=== PATIENT | male | born 1975 | race Caucasian/White ===

== ENCOUNTER 2016-10-21 21:53 | Emergency (ER) | payer SELFPAY ==
[~2016-10-21] VITALS: Ht 190.5 cm; Wt 114.7 kg
[2016-10-21 21:54] VITALS: Ht 190.5 cm; Wt 114.7 kg
--- OUTSIDE RECORDS SUMMARY | 2016-10-21 21:56 | XMS REPORT | Continuity of Care Document ---
Author Author [facility] Organization [facility] Address Unknown Phone Unavailable Support Name Relationship Address Phone YULIA MCKEON MD Caregiver [address] [place] [address] [place] [address] Unavailable FERNANDA SOSA Next Of Kin [address] [place] [address] Insurance Providers Guarantor Cali Dorado Address [address] [place] [address] Email DENIED 07-21-16 Payer Self Pay Subscriber's Name Cali Dorado Relationship 18 Self Chief Complaint and Reason for Visit Chief Complaint Male Urogenital Problems Reason for Visit [id number] Problems Past Problems Medical Problem Onset Date Kidney stones Unknown Medications Current Home Medications Medication Dose Units Route Directions Days Qty Instructions Start Date None 09/05/08 Social History Social History Problem Response Recorded Date/Time Onset Date Status Hx Substance Use No 07/21/2016 3:46pm Not Applicable Not Applicable Hx Alcohol Use Y OCC BEER 07/21/2016 3:46pm Not Applicable Not Applicable Query Response Start Date Stop Date Smoking Status Former smoker Hospital Discharge Instructions No hospital discharge instructions. Plan of Care Discharge Date 07/21/16 5:36pm Disposition 01 DISCHARGED HOME, SELF-CARE Condition at Discharge Stable Instructions/Education Provided Kidney Stones (ED) Prescriptions See Medication Section Additional Instructions/Education 1. You have kidney stones, but it doesn't appear that any of them are currently moving down the ureters. 2. You can try ice and or heat for the flank pain you are experiencing. 3. It is very important that you establish care with a primary care provider and have regular follow-up. Furthermore, it is strongly suggested you take the medication which has been recommended/prescribed for your coronary artery disease. Care Plan and Goals Physician Care Plan Problem: Kidney stones Goal: Follow up with primary care provider Instructions: Take medications and follow care plan as discussed/written Functional Status No functional status results. Allergies, Adverse Reactions, Alerts Allergen Type Severity Reaction Status Last Updated No Known Drug Allergies Allergy Unknown Active 03/18/08 Immunizations Query Response on File Recorded Date/Time Hx Influenza Vaccination No 09/05/08 6:04pm Hx Pneumococcal Vaccination No 09/05/08 6:04pm Hx Influenza Vaccination No 09/05/08 6:04pm Vital Signs Acute Vital Signs Vital Response Date/Time Temperature (Fahrenheit) 97.6 deg F (96.8 - 99.1) 07/21/2016 5:36pm Temperature (Calculated Celsius) 36.54167 degrees C (36.0 - 37.3) 07/21/2016 5:36pm Pulse Rate (adult) 68 bpm (60 - 100) 07/21/2016 5:36pm Respiratory Rate 16 breaths/min (10 - 20) 07/21/2016 5:36pm O2 Sat by Pulse Oximetry 98 % (90 - 100) 07/21/2016 5:36pm Blood Pressure 135/80 mm Hg 07/21/2016 5:36pm Height (Feet) 6 feet 07/21/2016 3:35pm Height (Inches) 3.00 inches 07/21/2016 3:35pm Weight (Kilograms) 115.000 kg 07/21/2016 3:35pm Body Mass Index (BMI) 31.0 07/21/2016 3:35pm Results Laboratory Results Test Name Result Units Flags Reference Collection Date/Time Result Date/ Time Comments Urine Color YELLOW YELLOW 07/21/2016 3:52pm 07/21/2016 4:05pm Urine Turbidity CLEAR CLEAR 07/21/2016 3:52pm 07/21/2016 4:05pm Urine Specific [place] 1.025 1.015-1.025 07/21/2016 3:52pm 2016 4:05pm Urine pH 6.0 5.0-8.0 07/21/2016 3:52pm 07/21/2016 4:05pm Urine Leukocyte Esterase NEGATIVE NEGATIVE 07/21/2016 3:52pm 2016 4:05pm Urine Nitrite NEGATIVE NEGATIVE 07/21/2016 3:52pm 07/21/2016 4:05pm Urine Protein NEGATIVE NEGATIVE 07/21/2016 3:52pm 07/21/2016 4:05pm Urine Glucose (UA) NEGATIVE NEGATIVE 07/21/2016 3:52pm 07/21/2016 4: 05pm Urine Ketones NEGATIVE NEGATIVE 07/21/2016 3:52pm 07/21/2016 4:05pm Urine Urobilinogen 0.2 EU/DL NORMAL 07/21/2016 3:52pm 07/21/2016 4: 05pm Urine Bilirubin NEGATIVE NEGATIVE 07/21/2016 3:52pm 07/21/2016 4: 05pm Urine Blood TRACE-INTACT A NEGATIVE 07/21/2016 3:52pm 07/21/2016 4: 05pm Urinalysis Comment MICROSCOPIC NOT IND. 07/21/2016 3:52pm 2016 4:05pm Name: CALI DORADO Unit #: [id number] : 1975 Sex: M Admit Date: Loc / Svc: ED Discharge Date: DIAGNOSTIC IMAGING REPORT Report #: [id number] [facility] [place] Indication: ITS.REASON: right flank pain, hematuria PROCEDURE: CT RENAL W/O CONTRAST: Encounter: Initial Comparison: None Technique: Axial CT images were performed through the abdomen and pelvis without intravenous contrast. Coronal and sagittal two-dimensional reformats. Automated Exposure Control and Iterative Reconstruction dose reducing techniques were utilized. Findings: The lung bases are clear. The unenhanced contours of the liver, gallbladder, spleen, pancreas and adrenal glands are within normal limits. Left kidney shows a 3 mm nonobstructing upper pole stone and a 2 mm lower pole stone. No left ureteral stone. Right kidney shows a 2 mm upper pole stone and a 1 mm lower pole stone. No hydronephrosis. No right-sided ureteral stone. Bladder appears normal. No free fluid or evidence of a bowel obstruction. Postoperative changes from prior appendectomy. Bone windows are normal for age. Right testicle appears to be partially retracted into the inguinal canal. Impression: Nonobstructing bilateral nephrolithiasis. No ureteral stone or clear etiology for the patient's right flank pain. . Procedures No known history of procedures. Encounters Encounter Location Arrival/Admit Date Discharge/Depart Date Attending Provider Departed Emergency Room [facility] 07/21/16 3:32pm 07/21/16 5: 36pm YULIA MCKEON MD Recent Diagnosis
--- OUTSIDE RECORDS SUMMARY | 2016-10-21 21:56 | XMS REPORT ---
Author Author [facility], [facility] - Organization Unknown Address Unknown Phone Unavailable Allergies, Adverse Reactions, Alerts * No Latex Allergy. * No IV Contrast Allergy. * No Known Drug Allergies. * No Known Food Allergies. * No Known Allergies. Problems * Cardiovascular CV Stress Test: Abnormal* Status:Active. * Chest Pain* Status:Active. * Skin Integrity Impairment* Status:Active. Procedures No Procedures Documented. Medication It is the responsibility of the patient or patient manufacturer's service representative to confirm the list of medications with either the patient's personal care provider or the patient's follow-up care provider to ensure the patient has an appropriate list of medications to take at home. Discharge medications* famotidine (Pepcid AC) 40 mg Tablet, Ordered By: NAA VIGIL Directions: 1 tablet oral daily Additional Instructions: for 6 weeks * isosorbide mononitrate (Imdur) 30 mg Tablet Extended Release 24 hr, Ordered By : NAA VIGIL Directions: 1 tablet oral daily Additional Instructions: for 2 months Stopped medications* metoprolol tartrate 25 mg Tablet Directions: 0.5 tablet oral twice a day * aspirin 81 mg Tablet, Delayed Release (E.C.) Directions: 1 tablet oral daily Results LAB--CHEMISTRY from 10/22/2012 1:00 PMAnion Gap 5 (3-20 ) Albumin 4.1 g/dL (3.5-4.8 g/dL) Alkaline Phosphatase 44 U/L (26-104 U/L) ALT (SGPT) 27 U/L (17-63 U/L) AST (SGOT) 19 U/L (15-41 U/L) Bilirubin Total 1.2 mg/dL (0.2-1.2 mg/dL) BUN 19 mg/dL (4-20 mg/dL) Calcium 9.3 mg/dL (8.6-10.0 mg/dL) Chloride 109 mEq/L (99-109 mEq/L) CO2 25 mEq/L (22-32 mEq/L) Creatinine 0.86 mg/dL (0.64-1.27 mg/dL) eGFR >60 (>60- ) Globulin 2.6 g/dL (1.9-4.3 g/dL) Glucose 105 mg/dL H (70-100 mg/dL) Potassium 4.1 mEq/L (3.6-5.1 mEq/L) Sodium 139 mEq/L (136-144 mEq/L) Protein 6.7 g/dL (6.1-7.9 g/dL) Cholesterol 176 mg/dL (0-200 mg/dL) Cardiac Risk 3.7 (0.0-5.7 ) HDL Cholesterol 48 mg/dL (>40- mg/dL) LDL Cholesterol 115 mg/dL H (0-100 mg/dL) Triglycerides 67 mg/dL (0-150 mg/dL) VLDL Cholesterol 13 mg/dL (0-30 mg/dL) LAB--HEMATOLOGY from 10/22/2012 1:00 PMHCT 43.1 % (42.0-52.0 %) HGB 15.8 g/dl (14.0-18.0 g/dl) MCH 31.5 pg (27.0-32.0 pg) MCHC 36.7 g/dL H (32.0-36.0 g/dL) MCV 85.9 fL (82.0-99.0 fL) MPV 10.9 fL (9.4-12.3 fL) Platelet Count 213 K/uL (150-400 K/uL) RBC 5.02 M/uL (4.60-6.20 M/uL) RDW 12.8 % (11.5-14.5 %) WBC 6.0 K/uL (4.8-10.8 K/uL)
--- OUTSIDE RECORDS SUMMARY | 2016-10-21 21:56 | XMS REPORT | Continuity of Care Document ---
Author Author [facility] Organization [facility] Address Unknown Phone Unavailable Care Team Providers Care Production Control Technologist Name Role Phone CATIE GALVAN MD Unavailable [phone] Insurance Providers Payer Name Policy Number Subscriber Name Relationship Self Pay Insurance Cali Dorado 01 Self / Same As Patient Chief Complaint and Reason for Visit Chief Complaint Skin Problem Reason for Visit Cellulitis and abscess of leg Problems Medical Problems Problem Onset Date Status Chest pain 09/24/2012 Active Atypical chest pain 10/01/2012 Active Moderate major depression, single episode 05/18/2013 Active Knee pain Unknown Active Foot pain Unknown Active Sinusitis Unknown Active Bursitis of elbow Unknown Active Bursitis of elbow Unknown Active Laceration of forearm, left Unknown Active Laceration of forearm, left Unknown Active Visit for suture removal Unknown Active Laceration of forearm, left Unknown Active Cellulitis and abscess of leg Unknown Active Medications Medication Dose Route Sig Days/Qty Instructions Order Date Discontinued Date Status [None] 09/24/12 Active Hydrocodone-Acetaminophen 1 Tab PO Every 6 hours as needed 20 Qty for pain 09/06/13 09/13/13 Discontinued Hydrocodone-Acetaminophen 1 Tab PO Every 6 hours as needed 20 Qty 09/1310/04/13 Discontinued Hydrocodone-Acetaminophen 1 Tab PO Every 6 hours as needed 20 Qty for pain 10/04/13 10/13/13 Discontinued Hydrocodone-Acetaminophen 1 Tab PO Every 6 hours as needed 20 Qty 10/1310/25/13 Discontinued Hydrocodone-Acetaminophen 1 Tab PO Every 6 hours as needed 20 Qty for pain 10/25/13 11/08/13 Discontinued Hydrocodone-Acetaminophen 1 Tab PO Every 6 hours as needed 20 Qty 11/0812/12/13 Discontinued Hydrocodone-Acetaminophen 1 Tab PO Every 6 hours as needed 20 Qty for pain 11/18/13 11/28/13 Discontinued Hydrocodone-Acetaminophen 1 Tab PO Every 6 hours as needed 20 Qty 11/2812/05/13 Discontinued Hydrocodone-Acetaminophen 1 Tab PO Every 6 hours as needed 20 Qty for pain 12/05/13 02/14/14 Discontinued Hydrocodone-Acetaminophen 1 Tab PO Every 6 hours as needed 20 Qty 12/1212/21/13 Discontinued Hydrocodone-Acetaminophen 1 Tab PO Every 6 hours as needed 30 Qty for pain 12/21/13 01/02/14 Discontinued Hydrocodone-Acetaminophen 1 Tab PO Every 6 hours as needed 30 Qty 01/0201/13/14 Discontinued Hydrocodone-Acetaminophen 1 Tab PO Every 6 hours as needed 30 Qty for pain 01/13/14 01/26/14 Discontinued Hydrocodone-Acetaminophen 1 Tab PO Every 6 hours as needed 30 Qty 01/2602/07/14 Discontinued Hydrocodone-Acetaminophen 1 Tab PO Every 6 hours as needed 30 Qty for pain 02/07/14 Active Hydrocodone-Acetaminophen 1 Tab PO Every 6 hours as needed 30 Qty 02/14 Active Sulfamethoxazole-Trimethoprim 1 Tab PO TWICE A DAY 10 Days 04/02/14 Active Cephalexin 500 Mg PO FOUR TIMES DAILY 10 Days 04/02/14 Active Hydrocodone-Acetaminophen 1 Tab PO q4h PRN 12 Qty 04/02/14 Active Social History Social History Problem Response Recorded Date/Time Hx Alcohol Use No 09/24/2012 5:38pm Hx Substance Use No 09/24/2012 5:38pm Smoking Status Former smoker 04/02/2014 10:48am Query Response Start Date Stop Date Smoking Status Former smoker Hospital Discharge Instructions No hospital discharge instructions. Plan of Care Discharge Date 04/02/14 11:21am Disposition 01 HOME, SELF-CARE Condition at Discharge Stable Prescriptions See Medications Section Referrals CATIE GALVAN MD Functional Status No functional status results. Allergies, Adverse Reactions, Alerts Allergen Type Severity Reaction Status Last Updated No Known Allergies Active 11/05/12 Immunizations Name Given Type Td (adult), adsorbed 03/17/14 Administered Vital Signs Acute Vital Signs Vital Response Date/Time Blood Pressure 134/76 mm Hg Blood Pressure Mean 95 mm Hg Temperature (Fahrenheit) 97.5 degrees F (96.0 - 99.9) Temperature (Calculated Celsius) 36.80927 degrees C Temperature Source Oral Pulse Pulse Rate: ED 92 bpm Respiratory Rate 17 breaths per minute (10 - 20) Height (Feet) 6 ft Height (Inches) 3 in. Weight (Pounds) 220 lbs Ambulatory Vital Signs Vital Response Date/Time Height 6 ft 01/09/2014 9:41am Weight 226 lbs 01/09/2014 9:41am Blood Pressure 116/80 mm Hg 01/09/2014 9:41am Body Surface Area 2.31 m2 01/09/2014 9:41am Body Mass Index 30.7 kg/m2 01/09/2014 9:41am Results Test Source Date Result Interp. Ref. Range Comments Alanine Aminotransferase (ALT/SGPT) September 24, 2012 2:13pm 29 U/L N 5-40 COMMENT: 03 Albumin September 24, 2012 2:13pm 4.5 gm/dL N 3.2-5.0 COMMENT: 03 Albumin/Globulin Ratio September 24, 2012 2:13pm 1.6 N 1.4-2.4 COMMENT: 03 Alkaline Phosphatase September 24, 2012 2:13pm 48 U/L N 35-125 COMMENT: 03 Amylase Level February 04, 2001 1:45pm 25 U/L N 16-108 Anion Gap September 24, 2012 2:13pm 10.8 N 6-13 COMMENT: 03 Aspartate Amino Transf (AST/SGOT) September 24, 2012 2:13pm 27 U/L N 5-40 COMMENT: 03 BUN/Creatinine Ratio September 24, 2012 2:13pm 19.1 COMMENT: 03 Band Neutrophils February 05, 2001 6:20am 2.0 % N 0-7 Basophils # (Auto) September 24, 2012 2:13pm 0.1 K/uL N 0-0.2 COMMENT: 03 Basophils (%) (Auto) September 24, 2012 2:13pm 0.5 % N 0-1 COMMENT: 03 Blood Urea Nitrogen September 24, 2012 2:13pm 18 mg/dL N 8-25 COMMENT: 03 Calcium Level September 24, 2012 2:13pm 9.4 mg/dL N 8.2-10.6 COMMENT: 03 Carbon Dioxide Level September 24, 2012 2:13pm 24 mEq/L N 22-34 COMMENT: 03 Chloride Level September 24, 2012 2:13pm 104 mEq/L N 98-116 COMMENT: 03 Cholesterol Level November 30, 2013 1:34pm 201 mg/dL H 120-200 Cholesterol Ratio (LDL/HDL) November 30, 2013 1:34pm 3.406 Creatine Kinase MB September 24, 2012 2:13pm 4.3 ng/mL N 0.0-6.0 COMMENT: 03 Creatinine September 24, 2012 2:13pm 0.94 mg/dL N 0.9-1.6 COMMENT: 03 Eosinophils # (Auto) September 24, 2012 2:13pm 0.1 K/uL N 0-0.8 COMMENT: 03 Eosinophils (%) (Auto) September 24, 2012 2:13pm 0.8 % N 0-7.0 COMMENT: 03 Eosinophils (Manual) February 04, 2001 1:45pm 1.0 % N 0-7.0 Globulin September 24, 2012 2:13pm 2.8 gm/dL N 2.0-3.0 COMMENT: 03 Glycated Hemoglobin November 30, 2013 1:34pm 5.3 % N 4.0-6.0 HDL Cholesterol November 30, 2013 1:34pm 59 mg/dL N 40-80 Hematocrit September 24, 2012 2:13pm 48.8 % N 40.0-54.0 COMMENT: 03 Hemoglobin September 24, 2012 2:13pm 17.2 g/dL N 14.0-18.0 COMMENT: 03 Immature Blood Cells September 24, 2012 2:13pm 0.1 K/uL N 0-0.4 COMMENT: 03 LDL Cholesterol November 30, 2013 1:34pm 117 mg/dL H 25-100 Lymphocytes # (Auto) September 24, 2012 2:13pm 1.4 K/uL N 0.9-5.2 COMMENT: 03 Lymphocytes (%) (Auto) September 24, 2012 2:13pm 16.4 % N 16.0-44.0 COMMENT : 03 Lymphocytes (Manual) February 05, 2001 6:20am 13.0 % PL 21.0-51.0 Mean Corpuscular Hemoglobin September 24, 2012 2:13pm 30.9 pg N 26.0-33.0 COMMENT: 03 Mean Corpuscular Hemoglobin Concent September 24, 2012 2:13pm 35.2 g/dL N 31.0-36.0 COMMENT: 03 Mean Corpuscular Volume September 24, 2012 2:13pm 87.7 fL N 80.0-94.0 COMMENT: 03 Mean Platelet Volume September 24, 2012 2:13pm 7.0 fL N 7.0-11.0 COMMENT: 03 Monocytes # (Auto) September 24, 2012 2:13pm 0.4 K/uL N 0.16-1.0 COMMENT: 03 Monocytes (%) (Auto) September 24, 2012 2:13pm 4.1 % N 2.0-9.0 COMMENT: 03 Monocytes (Manual) February 05, 2001 6:20am 5.0 % N 2.0-9.0 Neutrophils February 05, 2001 6:20am 80.0 % PH 42.0-75.0 Neutrophils # (Auto) September 24, 2012 2:13pm 6.5 K/uL N 1.9-8.0 COMMENT: 03 Neutrophils (%) (Auto) September 24, 2012 2:13pm 77.2 % H 42.0-75.0 COMMENT : 03 Platelet Count September 24, 2012 2:13pm 261 K/uL N 130-400 COMMENT: 03 Platelet Estimate February 05, 2001 6:20am Normal NORMAL Potassium Level September 24, 2012 2:13pm 3.8 mEq/L N 3.5-5.1 COMMENT: 03 Prothromb Time International Ratio September 24, 2012 2:13pm 0.98 L 2.0-3.0 COMMENT: 03 Prothrombin Time September 24, 2012 2:13pm 10.0 SECONDS N 9.0-12.0 COMMENT : 03 Random Glucose September 24, 2012 2:13pm 107 mg/dL N 65-115 COMMENT: 03 Red Blood Cell Morphology February 04, 2001 1:45pm Normal Red Blood Count September 24, 2012 2:13pm 5.57 M/uL H 4.60-5.40 COMMENT: 03 Red Cell Distribution Width September 24, 2012 2:13pm 12.4 % N 11.5-14.5 COMMENT: 03 Sodium Level September 24, 2012 2:13pm 135 mEq/L N 133-145 COMMENT: 03 Thyroid Stimulating Hormone (TSH) November 30, 2013 1:34pm 0.78 uIU/ml N 0.34-5.60 Total Bilirubin September 24, 2012 2:13pm 0.8 mg/dL N 0.1-1.3 COMMENT: 03 Total Creatine Kinase September 24, 2012 2:13pm 113 U/L N 10-180 COMMENT: 03 Total Protein September 24, 2012 2:13pm 7.3 gm/dL N 6.0-8.4 COMMENT: 03 Triglycerides Level November 30, 2013 1:34pm 127 mg/dL N 45-150 Urine Appearance February 04, 2001 10:00pm Clear Urine Bacteria February 04, 2001 10:00pm None NEGATIVE Urine Bilirubin February 04, 2001 10:00pm Negative NEGATIVE Urine Color February 04, 2001 10:00pm Yellow Urine Epithelial Cells February 04, 2001 10:00pm Few /LPF Urine Glucose (UA) February 04, 2001 10:00pm Negative NEGATIVE Urine Ketones February 04, 2001 10:00pm Negative NEGATIVE Urine Leukocyte Esterase February 04, 2001 10:00pm Negative NEGATIVE Urine Mucus September 24, 1999 10:50am 1+ NEGATIVE Urine Nitrate February 04, 2001 10:00pm Negative NEGATIVE Urine Occult Blood February 04, 2001 10:00pm Negative NEGATIVE Urine Protein February 04, 2001 10:00pm Trace NEGATIVE Urine RBC February 04, 2001 10:00pm 0-1 /hpf NONE Urine Specific [place] February 04, 2001 10:00pm 1.010 Urine Urobilinogen February 04, 2001 10:00pm 1.0 E.U./dL 0.2-1.0 Urine WBC February 04, 2001 10:00pm 0-2 /hpf NONE Urine WBC Clumps February 04, 2001 10:00pm None NONE Urine pH February 04, 2001 10:00pm 7.0 VLDL Cholesterol November 30, 2013 1:34pm 25.4 N 5-40 White Blood Count September 24, 2012 2:13pm 8.4 K/uL N 5.0-10.0 COMMENT: 03 D-Dimer Quantitative (PE/DVT) September 24, 2012 2:13pm < 150 ng/mL <230 Results <230 ng/mL uday burroughs negativepredictability for DVT or PE Bedside Troponin I September 25, 2012 6:54am < 0.05 ng/mL 0.00-0.05 <0.05 ng/mL=NORMAL0.05 - 0.40 ng/mL=CARDIAC CONDITION >0.40 ng/mL=SUGGESTS AMI Glomerular Filtration Rate Calc September 24, 2012 2:13pm > 60.00 mL/min MULTIPLY RESULT BY 1.210 IF THE PATIENT IS -AMERICANUnits are mL/min/ 1.73 m2 > 60 Normal kidney function 30-59 Moderately decreased kidney function 15-29 Severely decreased kidney function <15 End-stage kidney failure Influenza Virus A & B Rapid Smear Nasopharyngeal June 21, 2007 1:50pm Herpes Simplex Virus Culture Finger-Right Pinky April 21, 2007 4:15pm SEE SEPARATE REPORT Procedures No known history of procedures. Encounters Encounter Location Date/Time Departed [facility] 04/02/14 10:45am Departed Emergency Room [facility] 03/22/14 10:10am Departed Emergency Room [facility] 03/17/14 4:47pm Departed Emergency Room [facility] 02/12/14 8:46pm Office Visit CATIE GALVAN 01/09/14 9:35am Office Visit CATIE GALVAN 12/21/13 4:00pm Office Visit CATIE GALVAN 11/28/13 4:30pm Office Visit [facility] 09/13/13 2:00pm Departed Emergency Room [facility] 09/06/13 7:09pm Office Visit CATIE GALVAN 05/18/13 10:30am Recent Diagnosis
--- OUTSIDE RECORDS SUMMARY | 2016-10-21 21:57 | XMS REPORT | Referral Summary ---
Author Author [facility] Organization [facility] Address Unknown Phone Unavailable Care Team Providers Care Delivery Crew Member Name Role Phone Cornell Delgado Primary Care Physician Unavailable Encounter KELLY [id number] Date(s): 05/29/16 - 05/29/16 [facility] [address] [place] [address] [phone] Discharge Disposition: 01-Home or Self Care Attending Physician: Presley Cortés MD Admitting Physician: Presley Cortés MD Vital Signs Most recent to 1 oldest [Reference Range]: Temperature Tympanic 36.2 degC [36.6-38.1 degC] *LOW* (05/29/16 11:22 AM) Heart Rate Monitored 78 bpm [60-100 bpm] (05/29/16 5:15 PM) Respiratory Rate 16 br/min [14-20 br/min] (05/29/16 5:15 PM) Blood Pressure 115/79 mmHg [90-140/60-90 mmHg] (05/29/16 5:15 PM) Mean Arterial 96 mmHg Pressure, Cuff (05/29/16 5:15 PM) SpO2 99 % (05/29/16 5:15 PM) Remote Telemetry Ongoing (05/29/16 2:00 PM) Problem List No data available for this section Allergies, Adverse Reactions, Alerts No Known Allergies Medications aspirin 81 mg oral tablet 81 mg 1 tabs, Oral, Daily, # 30 tabs, 0 Refill(s) Start Date: 05/28/16 Status: Ordered nitroglycerin 0.4 mg sublingual tablet 0.4 mg 1 tabs, SubLingual, q5min, as needed for chest pain, # 100 tabs, 0 Refill (s) Start Date: 05/28/16 Status: Ordered Results Hematology Most recent to 1 oldest [Reference Range]: WBC [4.8-10.8 5.4 10*3/uL 10*3/uL] (05/29/16 11:45 AM) RBC [4.60-6.20] 5.15 (05/29/1645 AM) Hgb [14.0-18.0 15.3 gm/dL gm/dL] (05/29/16 11:45 AM) Hct [42.0-52.0 %] 44.1 % (05/29/1645 AM) MCV [82.0-99.0 fL] 85.6 fL (05/29/1645 AM) MCH [27.0-32.0 pg] 29.7 pg (05/29/16:45 AM) MCHC [32.0-36.0 34.7 gm/dL gm/dL] (05/29/16:45 AM) RDW [11.5-14.5 %] 12.2 % (05/29/16:45 AM) Platelet [150-400 225 10*3/uL 10*3/uL] (05/29/16 11:45 AM) MPV [9.4-12.3 fL] 11.0 fL (05/29/16 11:45 AM) Chemistry Most recent to 1 oldest [Reference Range]: Sodium Lvl [136-144 140 mEq/L mEq/L] (05/29/16:45 AM) Potassium Lvl 4.2 mEq/L [3.6-5.1 mEq/L] (05/29/1645 AM) Chloride [99-109 107 mEq/L mEq/L] (05/29/1645 AM) CO2 [22-32 mEq/L] 26 mEq/L (05/29/16:45 AM) AGAP [3-20] 7 (05/29/1645 AM) BUN [4-20 mg/dL] 18 mg/dL (05/29/1645 AM) Glucose Lvl [70-100 95 mg/dL mg/dL] (05/29/16:45 AM) Creatinine Lvl 0.89 mg/dL [0.64-1.27 mg/dL] (05/29/1645 AM) eGFR [>60] >60 1 (12/22/16 11:45 AM) Calcium Lvl 9.4 mg/dL [8.6-10.0 mg/dL] (05/29/16 11:45 AM) 1Result Comment: Multiply eGFR results by 1.21 for race. Immunizations No data available for this section Procedures Procedure Date Related Diagnosis Body Site Catheterization Left Heart with Coronary 05/29/16 Angiography1 1auto-populated from documented surgical case Social History Social History Type Response Smoking Status Former smoker; Type: Cigarettes Assessment and Plan No data available for this section
--- OUTSIDE RECORDS SUMMARY | 2016-10-21 21:57 | XMS REPORT | Continuity of Care Document ---
Author Author [facility] Organization [facility] Address Unknown Phone Unavailable Care Team Providers Care Science Writer Name Role Phone CATIE GALVAN MD Unavailable [phone] Insurance Providers Payer Name Policy Number Subscriber Name Relationship Self Pay Insurance Cali Dorado 01 Self / Same As Patient Chief Complaint and Reason for Visit Chief Complaint Knee Pain Reason for Visit Cellulitis and abscess of [...] Cellulitis and abscess of leg Unknown Active Cellulitis and abscess of leg Unknown Active Cellulitis and abscess of leg Unknown Active Medications Medication Dose Route Sig Days/Qty Instructions Order Date Discontinued Date Status Hydrocodone-Acetaminophen 1 Tab PO Every 6 hours [...] hours as needed 30 Qty 01/2602/07/14 Discontinued Sulfamethoxazole-Trimethoprim 1 Tab PO TWICE A DAY 10 Days 04/02/14 Active Cephalexin 500 Mg PO FOUR TIMES DAILY 10 Days 04/02/14 Active Hydrocodone-Acetaminophen 1 Tab PO q4h PRN 12 Qty 04/02/14 Active Social History Social History Problem Response Recorded Date/Time Hx Alcohol Use No 09/24/2012 5:38pm Hx Substance Use No 09/24/2012 5:38pm Smoking Status Former smoker 04/02/2014 10:23pm Query Response Start Date Stop Date Smoking Status Former smoker Hospital Discharge Instructions No hospital discharge instructions. Plan of Care Discharge Date 04/02/14 11:20pm Disposition 01 HOME, SELF-CARE Condition at Discharge Stable Prescriptions See Medications Section Referrals CATIE GALVAN MD Functional Status No functional status results. Allergies, Adverse Reactions, Alerts Allergen Type Severity Reaction Status Last Updated No Known Allergies Active 11/05/12 Immunizations Name Given Type Td (adult), adsorbed 03/17/14 Administered Vital Signs Acute Vital Signs Vital Response Date/Time Blood Pressure 147/76 mm Hg Blood Pressure Mean 99 mm Hg Temperature (Fahrenheit) 98.2 degrees F (96.0 - 99.9) Temperature (Calculated Celsius) 36.19567 degrees C Temperature Source Oral Pulse Pulse Rate: ED 91 bpm Respiratory Rate 17 breaths per minute [...] 2001 10:00pm 0-1 /hpf NONE Urine Specific [place] February 04, 2001 10:00pm 1.010 Urine Urobilinogen [...] Encounters Encounter Location Date/[facility] 10:11[facility]/02/14 10:45am [facility] 03/22/14 10:10am [facility] 03/17/14 4:47pm [facility] 02/12/14 8:46pm Office Visit CATIE GALVAN 01/09/14 9:35am Office Visit CATIE GALVAN 12/21/13 4:00pm Office Visit CATIE GALVAN 11/28/13 4:30pm Office Visit [facility] 09/13/13 2:00pm [facility] 7:09pm Office Visit CATIE GALVAN 05/18/13 10:30am Recent Diagnosis
--- OUTSIDE RECORDS SUMMARY | 2016-10-21 21:57 | XMS REPORT | Continuity of Care Document ---
Author Author [facility] Organization [facility] Address Unknown Phone Unavailable Care Team Providers Care Party Plan Selling Distributor Name Role Phone CATIE GALVAN MD Unavailable [phone] Insurance Providers Payer Name Policy Number Subscriber Name Relationship Self Pay Insurance Cali Dorado 01 Self / Same As Patient Chief Complaint and Reason for Visit Chief Complaint Knee Pain Reason for Visit [id number] Knee pain Problems Medical Problems Problem Onset Date Status [...] Cellulitis and abscess of leg Unknown Active Folliculitis Unknown Active Knee sprain Unknown Active Knee pain Unknown Active Medications Medication Dose Route Sig Days/Qty Instructions Order Date Discontinued Date Status Hydrocodone-Acetaminophen 1 Tab PO Every 6 hours as needed For Pain 20 Qty for pain 09/06/13 09/13/13 Discontinued Hydrocodone-Acetaminophen 1 Tab PO Every 6 hours as needed For Pain 20 Qty 09/13/13 10/04/13 Discontinued Hydrocodone-Acetaminophen 1 Tab PO Every 6 hours as needed For Pain 20 Qty for pain 10/04/13 10/13/13 Discontinued Hydrocodone-Acetaminophen 1 Tab PO Every 6 hours as needed For Pain 20 Qty 10/13/13 10/25/13 Discontinued Hydrocodone-Acetaminophen 1 Tab PO Every 6 hours as needed For Pain 20 Qty for pain 10/25/13 11/08/13 Discontinued Hydrocodone-Acetaminophen 1 Tab PO Every 6 hours as needed For Pain 20 Qty 11/08/13 12/12/13 Discontinued Hydrocodone-Acetaminophen 1 Tab PO Every 6 hours as needed 20 Qty for pain 11/18/13 11/28/13 Discontinued Hydrocodone-Acetaminophen 1 Tab PO Every 6 hours as needed 20 Qty 11/2812/05/13 Discontinued Hydrocodone-Acetaminophen 1 Tab PO Every 6 hours as needed 20 Qty for pain 12/05/13 02/14/14 Discontinued Hydrocodone-Acetaminophen 1 Tab PO Every 6 hours as needed For Pain 20 Qty 12/12/13 12/21/13 Discontinued Hydrocodone-Acetaminophen 1 Tab PO Every 6 hours as needed For Pain 30 Qty for pain 12/21/13 01/02/14 Discontinued Hydrocodone-Acetaminophen 1 Tab PO Every 6 hours as needed For Pain 30 Qty 01/02/14 01/13/14 Discontinued Hydrocodone-Acetaminophen 1 Tab PO Every 6 hours as needed For Pain 30 Qty for pain 01/13/14 01/26/14 Discontinued Hydrocodone-Acetaminophen 1 Tab PO Every 6 hours as needed For Pain 30 Qty 01/26/14 02/07/14 Discontinued Ibuprofen 600 Mg PO Every 6 hours as needed For Pain 16 Qty 05/24/14 Active Tramadol Hcl 50 Mg PO Every 6 hours as needed For Pain 12 Qty 05/24/14 Active Social History Social History Problem Response Recorded Date/Time Hx Alcohol Use No 09/24/2012 5:38pm Hx Substance Use No 09/24/2012 5:38pm Smoking Status Former smoker 05/24/2014 11:50am Query Response Start Date Stop Date Smoking Status Former smoker Hospital Discharge Instructions No hospital discharge instructions. Plan of Care Discharge Date 05/24/14 1:07pm Disposition 01 HOME, SELF-CARE Condition at Discharge Stable Prescriptions See Medications Section Referrals MASSIEL FELDMAN M.D. DO, SEJAL Thorpe M.D. Additional Instructions/Education use your knee immobilizer and crutches followup with PCP or orthopedics as you may need MRI or therapy on your knee if pain continues Functional Status No functional status results. Allergies, Adverse Reactions, Alerts Allergen Type Severity Reaction Status Last Updated No Known Allergies Active 05/24/14 Immunizations Name Given Type Td (adult), adsorbed 03/17/14 Administered Vital Signs Acute Vital Signs Vital Response Date/Time Blood Pressure 144/80 mm Hg Blood Pressure Mean 101 mm Hg Temperature (Fahrenheit) 98.5 degrees F (96.0 - 99.9) Temperature (Calculated Celsius) 36.31195 degrees C Temperature Source Oral Pulse Pulse Rate: ED 71 bpm Respiratory Rate 16 breaths per minute (10 - 20) Height [...] 2001 10:00pm 0-1 /hpf NONE Urine Specific [place] February 04, 2001 10:00pm 1.010 Urine Urobilinogen [...] Encounters Encounter Location Date/Time Departed Emergency Room [facility] 05/24/14 11:47am Departed Emergency Room [facility] 04/20/14 7:08pm Departed Emergency Room [facility] 04/02/14 10:11pm Departed Emergency Room [facility] 04/02/14 10:45am Departed Emergency Room [facility] 03/22/14 10:10am Departed Emergency Room [facility] 03/17/14 4:47pm Departed Emergency Room [facility] 02/12/14 8:46pm Office Visit CATIE GALVAN 01/09/14 9:35am Office Visit CATIE GALVAN 12/21/13 4:00pm Office Visit CATIE GALVAN 11/28/13 4:30pm Office Visit [facility] 09/13/13 2:00pm Departed Emergency Room [facility] 09/06/13 7:09pm Recent Diagnosis
--- OUTSIDE RECORDS SUMMARY | 2016-10-21 21:57 | XMS REPORT | Continuity of Care Document ---
Author Author [facility] Organization [facility] Address Unknown Phone Unavailable Care Team Providers Care Enamel Burner Name Role Phone CATIE GALVAN MD Unavailable [phone] Insurance Providers Payer Name Policy Number Subscriber Name Relationship Self Pay Insurance Cali Dorado 01 Self / Same As Patient Chief Complaint and Reason for Visit Chief Complaint Arm Laceration Reason for Visit [id number] Problems Medical Problems Problem Onset Date Status Chest pain 09/24/2012 Active Atypical chest pain 10/01/2012 Active Moderate major depression, single episode 05/18/2013 Active Knee pain Unknown Active Foot pain Unknown Active Sinusitis Unknown Active Bursitis of elbow Unknown Active Bursitis of elbow Unknown Active Laceration of forearm, left Unknown Active Medications Medication Dose Route Sig [...] hours as needed 30 Qty 02/14 Active Social History Social History Problem Response Recorded Date/Time Hx Alcohol Use No 09/24/2012 5:38pm Hx Substance Use No 09/24/2012 5:38pm Smoking Status Former smoker 03/17/2014 4:53pm Query Response Start Date Stop Date Smoking Status Former smoker Hospital Discharge Instructions No hospital discharge instructions. Plan of Care Discharge Date 03/17/14 7:04pm Disposition 01 HOME, SELF-CARE Condition at Discharge Stable Prescriptions See Medications Section Referrals CATIE GALVAN MD Functional Status No functional status results. Allergies, Adverse Reactions, Alerts Allergen Type Severity Reaction Status Last Updated No Known Allergies Active 11/05/12 Immunizations No immunization records. Vital Signs Acute Vital Signs Vital Response Date/Time Blood Pressure 139/86 mm Hg Blood Pressure Mean 103 mm Hg Temperature (Fahrenheit) 97.9 degrees F (96.0 - 99.9) Temperature (Calculated Celsius) 36.45396 degrees C Temperature Source Oral Pulse Pulse Rate: ED 92 bpm Respiratory Rate 18 breaths per minute (10 - 20) Height [...] 2001 10:00pm 0-1 /hpf NONE Urine Specific [place] February 04, 2001 10:00pm 1.010 Urine Urobilinogen [...] Encounters Encounter Location Date/Time Departed Emergency Room [facility] 03/17/14 4:47pm Departed Emergency Room [facility] 02/12/14 8:46pm Office Visit CATIE GALVAN 01/09/14 9:35am Office Visit CATIE GALVAN 12/21/13 4:00pm Office Visit CATIE GALVAN 11/28/13 4:30pm Office Visit [facility] 09/13/13 2:00pm Departed Emergency Room [facility] 09/06/13 7:09pm Office Visit CATIE GALVAN 05/18/13 10:30am Recent Diagnosis
--- OUTSIDE RECORDS SUMMARY | 2016-10-21 21:57 | XMS REPORT | Continuity of Care Document ---
Author Author [facility] Organization [facility] Address Unknown Phone Unavailable Allergies Active Description Code Type Severity Reaction Onset Reported/Identified Relationship to Patient Clinical Status Yes No Known Allergies Drug Allergy N/A N/A 10/22/2012 Yes No Known Drug Allergies Drug Allergy N/A N/A 10/22/2012 Yes No Known Food Allergies Food Allergy N/A N/A 10/22/2012 Medications Problems Date Dx Coded Attending Type Code Diagnosis Diagnosed By 10/22/2012 Presley Cortés MD Final 786.50 CHEST PAIN NOS 10/22/2012 Presley Cortés MD Final 794.39 ABN CV FUNCT STUDY NEC 10/22/2012 Presley Cortés MD Admitting 786.50 CHEST PAIN NOS Procedures Results Encounters ACCT No. Visit Date/Time Discharge Status Pt. Type Provider Facility Loc./Unit Complaint [id number] 10/22/2012 12:17:00 2012 22:43:00 DIS Outpatient Presley Cortés MD [facility] on [address]
--- OUTSIDE RECORDS SUMMARY | 2016-10-21 21:57 | XMS REPORT | Continuity of Care Document ---
Author Author [facility] Organization [facility] Address Unknown Phone Unavailable Care Team Providers Care Wedding Planner Name Role Phone CATIE GALVAN MD Unavailable [phone] Insurance Providers Payer Name Policy Number Subscriber Name Relationship Self Pay Insurance Cali Dorado 01 Self / Same As Patient Chief Complaint and Reason for Visit Chief Complaint Facial Swelling Reason for Visit Folliculitis Problems Medical Problems Problem Onset Date Status [...] of leg Unknown Active Folliculitis Unknown Active Medications Medication Dose Route Sig [...] For Pain 30 Qty 01/26/14 02/07/14 Discontinued Sulfamethoxazole-Trimethoprim 2 Tab PO TWICE A DAY For BACTINF 40 Qty 04/20/14 Active Chlorhexidine Gluconate 4 % EX q3days For Bacterial Infection 1 Qty Active Social History Social History Problem Response Recorded Date/Time Hx Alcohol Use No 09/24/2012 5:38pm Hx Substance Use No 09/24/2012 5:38pm Smoking Status Former smoker 04/20/2014 7:14pm Query Response Start Date Stop Date Smoking Status Former smoker Hospital Discharge Instructions No hospital discharge instructions. Plan of Care Discharge Date 04/20/14 8:05pm Disposition 01 HOME, SELF-CARE Condition at Discharge Improved/Stable Prescriptions See Medications Section Referrals WALTER KILGORE M.D. Functional Status No functional status results. Allergies, Adverse Reactions, Alerts Allergen Type Severity Reaction Status Last Updated No Known Allergies Active 11/05/12 Immunizations Name Given Type Td (adult), adsorbed 03/17/14 Administered Vital Signs Acute Vital Signs Vital Response Date/Time Blood Pressure 132/81 mm Hg Blood Pressure Mean 98 mm Hg Temperature (Fahrenheit) 98.2 degrees F (96.0 - 99.9) Temperature (Calculated Celsius) 36.48555 degrees C Temperature Source Oral Pulse Pulse Rate: ED 67 bpm Respiratory Rate 20 breaths per minute (10 - 20) Height [...] 2001 10:00pm 0-1 /hpf NONE Urine Specific [place] February 04, 2001 10:00pm 1.010 Urine Urobilinogen [...] Encounters Encounter Location Date/Time Departed Emergency Room [facility] 04/20/14 7:08pm Departed Emergency Room [facility] 04/02/14 10:11pm Departed Emergency Room [facility] 04/02/14 10:45am Departed Emergency Room [facility] 03/22/14 10:10am Departed Emergency Room [facility] 03/17/14 4:47pm Departed Emergency Room [facility] 02/12/14 8:46pm Office Visit [facility]IE GALVAN 01/09/14 9:35am Office Visit CATIE GALVAN 12/21/13 4:00pm Office Visit CATIE GALVAN 11/28/13 4:30pm Office Visit [facility] 09/13/13 2:00pm Departed Emergency Room [facility] 09/06/13 7:09pm Office Visit CATIE GALVAN 05/18/13 10:30am Recent Diagnosis
--- OUTSIDE RECORDS SUMMARY | 2016-10-21 21:58 | XMS REPORT | Continuity of Care Document ---
Author Author [facility] Organization [facility] Address Unknown Phone Unavailable Care Team Providers Care Jack Strip Assembler Name Role Phone CATIE GALVAN MD Unavailable [phone] Insurance Providers Payer Name Policy Number Subscriber Name Relationship Self Pay Insurance Cali Dorado 01 Self / Same As Patient Chief Complaint and Reason for Visit Chief Complaint Hand Injury Reason for Visit Crushing injury of left hand Problems Medical Problems Problem Onset Date Status [...] sprain Unknown Active Knee pain Unknown Active Crushing injury of left hand Unknown Active Medications Medication Dose Route Sig [...] For Pain 30 Qty 01/26/14 02/07/14 Discontinued Hydrocodone-Acetaminophen 1-2 Tab PO Q4-6H PRN PAIN 15 Qty 08/13/14 Active Social History Social History Problem Response Recorded Date/Time Hx Alcohol Use No 09/24/2012 5:38pm Hx Substance Use No 09/24/2012 5:38pm Smoking Status Former smoker 08/13/2014 4:14pm Query Response Start Date Stop Date Smoking Status Former smoker Hospital Discharge Instructions No hospital discharge instructions. Plan of Care Discharge Date 08/13/14 6:01pm Disposition 01 HOME, SELF-CARE Condition at Discharge Stable Prescriptions See Medications Section Additional Instructions/Education 1. Followup with your doctor in 2-3 days. 2. Elevate hand, ice as needed for swelling. 3. Use pain medication as needed for pain. 4. May also use Motrin as needed for pain. Functional Status No functional status results. Allergies, Adverse Reactions, Alerts Allergen Type Severity Reaction Status Last Updated No Known Allergies Active 05/24/14 Immunizations Name Given Type Td (adult), adsorbed 03/17/14 Administered Vital Signs Acute Vital Signs Vital Response Date/Time Blood Pressure 126/81 mm Hg Blood Pressure Mean 96 mm Hg Temperature (Fahrenheit) 97.9 degrees F (96.0 - 99.9) Temperature (Calculated Celsius) 36.72571 degrees C Temperature Source Oral Pulse Pulse Rate: ED 72 bpm Respiratory Rate 20 breaths per minute [...] 2001 10:00pm 0-1 /hpf NONE Urine Specific [place] February 04, 2001 10:00pm 1.010 Urine Urobilinogen [...] history of procedures. Encounters Encounter Location Date/Time Registered Emergency Room [facility] 08/13/14 4:10pm Departed Emergency Room [facility] 05/24/14 11:47am Departed Emergency Room [facility] 04/20/14 7:08pm Departed Emergency Room [facility] 04/02/14 10:11pm Departed Emergency Room [facility] 04/02/14 10:45am Departed Emergency Room [facility] 03/22/14 10:10am Departed Emergency Room [facility] 03/17/14 4:47pm Departed Emergency Room [facility] 02/12/14 8:46pm Office Visit [facility]IE GALVAN 01/09/14 9:35am Office Visit [facility]IE GAL[facility] 12/21/13 4:00pm Office Visit [facility]IE GAL[facility]AN 11/28/13 4:30pm Office Visit [facility] 09/13/13 2:00pm Departed Emergency Room [facility] 09/06/13 7:09pm Recent Diagnosis
--- OUTSIDE RECORDS SUMMARY | 2016-10-21 21:58 | XMS REPORT | Continuity of Care Document ---
Author Author [facility] Organization [facility] Address Unknown Phone Unavailable Care Team Providers Care Brusher Operator Name Role Phone CATIE GALVAN MD Unavailable [phone] Insurance Providers Payer Name Policy Number Subscriber Name Relationship Self Pay Insurance Cali Dorado 01 Self / Same As Patient Problems Medical Problems Problem Onset Date Status [...] No 09/24/2012 5:38pm Smoking Status Former smoker 03/22/2014 10:10am Query Response Start Date Stop Date Smoking Status Former smoker Hospital Discharge Instructions No hospital discharge instructions. Plan of Care Discharge Date 03/22/14 10:25am Disposition 01 HOME, SELF-CARE Condition at Discharge Stable Prescriptions See Medications Section Referrals CATIE GALVAN MD Functional Status No functional status results. Allergies, Adverse Reactions, Alerts Allergen Type Severity Reaction Status Last Updated No Known Allergies Active 11/05/12 Immunizations Name Given Type Td (adult), adsorbed 03/17/14 Administered Vital Signs Acute Vital Signs Vital Response Date/Time Blood Pressure 130/82 mm Hg Blood Pressure Mean 98 mm Hg Temperature (Fahrenheit) 97.4 degrees F (96.0 - 99.9) Temperature (Calculated Celsius) 36.40710 degrees C Temperature Source Oral Pulse Pulse Rate: ED 82 bpm Respiratory Rate 18 breaths per minute [...] 2001 10:00pm 0-1 /hpf NONE Urine Specific [place] February 04, 2001 10:00pm 1.010 Urine Urobilinogen [...] Encounters Encounter Location Date/Time Departed Emergency Room [facility] 03/22/14 10:10am Departed Emergency Room [facility] 03/17/14 4:47pm Departed Emergency Room [facility] 02/12/14 8:46pm Office Visit [facility]IE GALVAN 01/09/14 9:35am Office Visit [facility] G[facility] 12/21/13 4:00pm Office Visit CATIE GALVAN 11/28/13 4:30pm Office Visit [facility] 09/13/13 2:00pm Departed Emergency Room [facility] 09/06/13 7:09pm Office Visit CATIE GALVAN 05/18/13 10:30am
--- OUTSIDE RECORDS SUMMARY | 2016-10-21 22:04 | XMS REPORT | Continuity of Care Document ---
Author Author [facility] Organization [facility] Address Unknown Phone Unavailable Care Team Providers Care Bias Binding Folder Name Role Phone CATIE GALVAN MD Unavailable [phone] Insurance Providers Payer Name Policy Number Subscriber [...] F (96.0 - 99.9) Temperature (Calculated Celsius) 36.46336 degrees C Temperature Source Oral Pulse Pulse [...] 2001 10:00pm 0-1 /hpf NONE Urine Specific [place] February 04, 2001 10:00pm 1.010 Urine Urobilinogen [...] Encounters Encounter Location Date/[facility] 04/[facility]14 10:45am Departed Emergency Room [facility] 03/22/14 10:10am Departed Emergency Room [facility] 03/17/14 4:47pm [facility] 02/12/14 8:46pm Office Visit CATIE GALVAN 01/09/14 9:35am Office Visit [facility]IE GALVAN 12/21/13 4:00pm Office Visit [facility]IE GALVAN 11/28/13 4:30pm Office Visit [facility] 09/13/13 2:00pm Departed Emergency Room [facility] 09/06/13 7:09pm Office Visit CATIE GALVAN 05/18/13 10:30am Recent Diagnosis
--- OUTSIDE RECORDS SUMMARY | 2016-10-21 22:04 | XMS REPORT ---
Author Author [facility] - Organization Unknown Address Unknown Phone Unavailable [...] the responsibility of the patient or patient automotive leasing sales representative to confirm the list of medications [...]
--- OUTSIDE RECORDS SUMMARY | 2016-10-21 22:05 | XMS REPORT | Continuity of Care Document ---
Author Author [facility] Organization [facility] Address Unknown Phone Unavailable Care Team Providers Care Systems Software Designer Name Role Phone CATIE GALVAN MD Unavailable [phone] Insurance Providers Payer Name Policy Number Subscriber Name Relationship Self Pay Insurance Cali Dorado 01 Self / Same As Patient Chief Complaint and Reason for Visit Chief Complaint Knee Pain Reason for Visit [id number] Knee pain Problems Medical Problems Problem Onset [...] F (96.0 - 99.9) Temperature (Calculated Celsius) 36.03023 degrees C Temperature Source Oral Pulse Pulse [...] 2001 10:00pm 0-1 /hpf NONE Urine Specific [place] February 04, 2001 10:00pm 1.010 Urine Urobilinogen [...] Encounters Encounter Location Date/Time Departed Emergency Room [facility] 05/24/14 11:47am Departed Emergency Room [facility] 04/20/14 7:08pm Departed Emergency Room [facility] 04/02/14 10:11pm Departed Emergency Room [facility] 04/02/14 10:45am Departed Emergency Room [facility] 03/22/14 10:10am Departed Emergency Room [facility] 03/17/14 4:47pm Departed Emergency Room [facility] 02/12/14 8:46pm Office Visit [facility]IE GALVAN 01/09/14 9:35am Office Visit [facility] G[facility] 12/21/13 4:00pm Office Visit [facility]IE GALVAN 11/28/13 4:30pm Office Visit [facility] 09/13/13 2:00pm Departed Emergency Room [facility] 09/06/13 7:09pm Recent Diagnosis
--- OUTSIDE RECORDS SUMMARY | 2016-10-21 22:05 | XMS REPORT | Continuity of Care Document ---
Author Author [facility] Organization [facility] Address Unknown Phone Unavailable Care Team Providers Care Supervisor Contact And Service Clerks Name Role Phone CATIE GALVAN MD Unavailable [phone] Insurance Providers Payer Name Policy Number Subscriber [...] F (96.0 - 99.9) Temperature (Calculated Celsius) 36.62888 degrees C Temperature Source Oral Pulse Pulse [...] 2001 10:00pm 0-1 /hpf NONE Urine Specific [place] February 04, 2001 10:00pm 1.010 Urine Urobilinogen [...] Encounters Encounter Location Date/Time Departed Emergency Room [facility] 04/20/14 7:08pm Departed Emergency Room [facility] 04/02/14 10:11pm Departed Emergency Room [facility] 04/02/14 10:45am Departed Emergency Room [facility] 03/22/14 10:10am Departed Emergency Room [facility] 03/17/14 4:47pm Departed Emergency Room [facility] 02/12/14 8:46pm Office Visit [facility]IE GALVAN 01/09/14 9:35am Office Visit [facility] G[facility] 12/21/13 4:00pm Office Visit [facility] G[facility]VAN 11/28/13 4:30pm Office Visit [facility] 09/13/13 2:00pm Departed Emergency Room [facility] 09/06/13 7:09pm Office Visit CATIE GALVAN 05/18/13 10:30am Recent Diagnosis
--- OUTSIDE RECORDS SUMMARY | 2016-10-21 22:06 | XMS REPORT | Continuity of Care Document ---
Author Author [facility] Organization [facility] Address Unknown Phone Unavailable Care Team Providers Care Skip Hoist Operator Name Role Phone CATIE GALVAN MD Unavailable [phone] Insurance Providers Payer Name Policy Number Subscriber Name Relationship Self Pay Insurance [place]i [place] 01 Self / Same As Patient Chief Complaint and Reason for Visit Chief Complaint Arm Laceration Reason for Visit [id number] Problems Medical Problems Problem Onset Date Status [...] F (96.0 - 99.9) Temperature (Calculated Celsius) 36.63501 degrees C Temperature Source Oral Pulse Pulse [...] 2001 10:00pm 0-1 /hpf NONE Urine Specific [place] February 04, 2001 10:00pm 1.010 Urine Urobilinogen [...] Encounters Encounter Location Date/Time Departed Emergency Room [facility] 03/17/14 4:47pm Departed Emergency Room [facility] 02/12/14 8:46pm Office Visit CATIE GALVAN 01/09/14 9:35am Office Visit CATIE GALVAN 12/21/13 4:00pm Office Visit CATIE GALVAN 11/28/13 4:30pm Office Visit [facility] 09/13/13 2:00pm Departed Emergency Room [facility] 09/06/13 7:09pm Office Visit CATIE GALVAN 05/18/13 10:30am Recent Diagnosis
--- OUTSIDE RECORDS SUMMARY | 2016-10-21 22:06 | XMS REPORT | Continuity of Care Document ---
Author Author [facility] Organization [facility] Address Unknown Phone Unavailable Care Team Providers Care Toby Maker Name Role Phone CATIE GALVAN MD Unavailable [phone] Insurance Providers Payer Name Policy Number Subscriber [...] F (96.0 - 99.9) Temperature (Calculated Celsius) 36.79971 degrees C Temperature Source Oral Pulse Pulse [...] 2001 10:00pm 0-1 /hpf NONE Urine Specific [place] February 04, 2001 10:00pm 1.010 Urine Urobilinogen [...] Encounters En[facility] 10:10am [facility] 4:47[facility] 8:46pm Office Visit CATIE GALVAN 01/09/14 9:35am Office Visit CATIE GALVAN 12/21/13 4:00pm Office Visit CATIE GALVAN 11/28/13 4:30pm Office Visit [facility] 09/13/13 2:00pm [facility] 7:09[facility] Office Visit CATIE GALVAN 05/18/13 10:30am Recent Diagnosis
--- OUTSIDE RECORDS SUMMARY | 2016-10-21 22:06 | XMS REPORT | Continuity of Care Document ---
Author Author [facility] Organization [facility] Address Unknown Phone Unavailable Care Team Providers Care Bilingual Research Interviewer Name Role Phone CATIE GALVAN MD Unavailable [phone] Insurance Providers Payer Name Policy Number Subscriber [...] F (96.0 - 99.9) Temperature (Calculated Celsius) 36.86041 degrees C Temperature Source Oral Pulse Pulse [...] 2001 10:00pm 0-1 /hpf NONE Urine Specific [place] February 04, 2001 10:00pm 1.010 Urine Urobilinogen [...] Encounters Encounter Location Date/Time Departed Emergency Room [facility] 03/22/14 10:10am Departed Emergency Room [facility] 03/17/14 4:47pm Departed Emergency Room [facility] 02/12/14 8:46pm Office Visit CATIE GALVAN 01/09/14 9:35am Office Visit CATIE GALVAN 12/21/13 4:00pm Office Visit CATIE GALVAN 11/28/13 4:30pm Office Visit [facility] 09/13/13 2:00pm Departed Emergency Room [facility] 09/06/13 7:09pm Office Visit CATIE GALVAN 05/18/13 10:30am
--- OUTSIDE RECORDS SUMMARY | 2016-10-21 22:06 | XMS REPORT | Continuity of Care Document ---
Author Author [facility] Organization [facility] Address Unknown Phone Unavailable Care Team Providers Care Hand Leather Trimmer Name Role Phone CATIE GALVAN MD Unavailable [phone] Insurance Providers Payer Name Policy Number Subscriber [...] F (96.0 - 99.9) Temperature (Calculated Celsius) 36.07831 degrees C Temperature Source Oral Pulse Pulse [...] 2001 10:00pm 0-1 /hpf NONE Urine Specific [place] February 04, 2001 10:00pm 1.010 Urine Urobilinogen [...] Encounters Encounter Location Date/Time Registered Emergency Room [facility] 08/13/14 4:10pm Departed Emergency Room [facility] 05/24/14 11:47am Departed Emergency Room [facility] 04/20/14 7:08pm Departed Emergency Room [facility] 04/02/14 10:11pm Departed Emergency Room [facility] 04/02/14 10:45am Departed Emergency Room [facility] 03/22/14 10:10am Departed Emergency Room [facility] 03/17/14 4:47pm Departed Emergency Room [facility] 02/12/14 8:46pm Office Visit CATIE GALVAN 01/09/14 9:35am Office Visit CATIE GALVAN 12/21/13 4:00pm Office Visit CATIE GALVAN 11/28/13 4:30pm Office Visit [facility] 09/13/13 2:00pm Departed Emergency Room [facility] 09/06/13 7:09pm Recent Diagnosis
--- OUTSIDE RECORDS SUMMARY | 2016-10-21 22:06 | XMS REPORT | Continuity of Care Document ---
Author Author [facility] Organization [facility] Address Unknown Phone Unavailable Allergies Active Description [...] Status Pt. Type Provider Facility Loc./Unit Complaint [id number] 10/22/2012 12:17:00 2012 22:43:00 DIS Outpatient Presley Cortés MD [facility] on [address]
[2016-10-21] MEDS ORDERED: DOXYCYCLINE 100 MG TABLET PO ONE (22:15)
--- NOTE | 2016-10-21 22:16 | ERPDOC ---
Departure Disposition Decision Date: October 21, 2016 Disposition Decision Time: 22:20 Disposition: 01 DISCHARGED HOME, SELF-CARE Impression Impression Impression: Primary Impression: Infected tick bite of thoracic region Encounter type: initial encounter Qualified Codes: L08.9 - Local infection of the skin and subcutaneous tissue, unspecified; S20.96XA - Insect bite ( nonvenomous) of unspecified parts of thorax, initial encounter; W57.XXXA - Bitten or stung by nonvenomous insect and other nonvenomous arthropods, initial encounter Severity: Moderate Condition: Improved Seen By: Physician only Patient Instructions: Tick Bite (ED) Problems/Meds/Labs Reviewed?: Yes Medications reviewed and manag: Yes Additional Instructions: Doxycycline 100 mg, one tablet twice daily for 10 days Take Tylenol up to 1000 mg 4 times daily and/or ibuprofen 800 mg 4 times daily as needed for fever or pains If not improving in 3-5 days, return to ER or see her primary physician, or return sooner for any significant worsening Follow up care ordered?: Yes Mental Status: Alert, Oriented HPI - General Medical General Chief Complaint: General Stated Complaint: POSS INFECTION FROM TICK REMOVAL Time Seen by Provider: 21:55 Source: patient Exam Limitations: no limitations HPI - General Medical Initial Comments Pt presents with generalized malaise, myalgias, headache, fatigue, and chills that began after pt pulled a tick off his right chest wall two days ago. Pt has no rash, no fever, and no cough, cp, dyspnea, vomiting or diarrhea. Occurred At: home Onset: Rapid Severity: moderate Associated Symptoms: fever/chills, headaches, malaise, DENIES: chest pain, cough, diaphoresis, loss of appetite, nausea/vomiting, rash, seizure, shortness of breath, syncope, weakness Hx of Similar Symptoms: No Allergies: Coded Allergies: No Known Drug Allergies (Unverified Allergy, Unknown, 03/18/08) Past History Past Medical History Cardiac: CAD Surgical History Cardiac: cardiac cath, cardiac stent Joint: elbow, knee Vaccines Hx Influenza Vaccination: No Hx Pneumococcal Vaccination: No Social History Substance Use Type: does not use Alcohol Intake: occasionally Marital Status: In a relationship Current Occupational Status: employed Review of Systems Constitutional Constitutional: chills, fatigue, DENIES: appetite decrease, appetite increase, dizziness, fever, weakness ENMT Ears: DENIES: pain Hearing: DENIES: hearing loss, tinnitus Balance: DENIES: vertigo Mouth/Throat: DENIES: change in swallowing, change in voice, hoarsness, painful swallowing, sore throat Cardiovascular Cardiac: DENIES: chest pain, dyspnea on exertion Rhythm/Rate: DENIES: irregular beat, palpitations, tachycardia Vascular: DENIES: pedal edema Pulmonary Respiratory: DENIES: cough, dyspnea, pleuritic chest pain GI Upper Abdomen: DENIES: dysphagia, heartburn/indigestion, nausea, pain, vomiting Lower Abdomen: DENIES: blood in stool, constipation, diarrhea, pain General: DENIES: burning, dysuria, frequency, pain, urgency Musculoskeletal General: DENIES: cramps, joint pain, joint swelling, pain, weakness Integumentary Skin: lesion (small reddened area around tick bite), DENIES: rash, sores Neurological General: DENIES: headache, numbness, tingling, vertigo, weakness Psychiatric Psychiatric: DENIES: anxiety, depression, nervousness Physical Exam General General Nourishment: well nourished, well developed, appears stated age, no acute distress General Body Habitus: well groomed Vitals and Pain First Documented Vital Signs Date Time Temp Pulse Resp B/P Pulse Ox O2 Delivery O2 Flow Rate FiO2 10/21/16 21:54 98.3 70 18 114/65 94 Room Air Weight: Kilograms: 114.700 Height (feet): 6 Height (inches): 3.00 Triage Pain Scale: RN VS reviewed by Provider: Yes Comments Patient appears to feel moderately ill, the vital signs are stable and the patient is alert, oriented, and able to communicate effectively Normal Exams: Head: Normocephalic w/o trauma Eyes: Pupils are PERRLA w/ EOMI, No scleral icterus, irritation, or foreign bodies noted ENMT: No facial trauma, nasal exudates, pharyngeal erythema, or exudates are noted Neck: Full range of motion, without adenopathy, JVD, bruits or thyromegaly Chest/Resp: Clear all james, with good airflow, and symmetry bilaterally CV: Regular rate and rhythm, without murmur or gallop, Pulses 2+ all extremities, capillary refill, <2 seconds all ext., no pedal edema noted Abdomen: Bowel sounds positive, soft, non-tender, non-distended, no hepatosplenomegaly, masses or bruits noted Lymphatic: No lymphadenopathy, or lymphedema noted Musculoskeletal: No tenderness, or deformity noted, good range of motion, all extremities Neurologic: Patient is alert, and oriented, cranial nerves, motor/sensory/ cerebellar, exams w/o gross deficits, to observation Psychiatric: Patient exhibits, appropriate attention, emotion and affect Integumentary (brief) Integumentary Brief: FOUND: dry, lesions (patient has a 4 x 2 cm erythematous area around the tick bite. No target lesions, and no other rashes are seen patient has no significant lymphadenopathy), pink, warm, NOT FOUND: rash Neurologic (brief) Neurological Brief: FOUND: CN w/o gross def to obs, gait w/o gross def to obs, motor-no gross deficits, sensory-no gross deficits, NOT FOUND: ataxia Psychiatric (brief) Psychiatric Brief: FOUND: alert, attentive, normal affect, oriented Progress Results/Orders Orders Procedure Category Date Status Time Doxycycline PHA 10/21/16 In Process (Vibramycin) 22:15 Progress Progress Shared decision-making, although this appears to be primarily a viral syndrome, the coincidence of the tick bite has the patient very worried. Pt would like to start doxycycline therapy at this time, before going any lab for further evaluation, and will follow-up with a physician of his choice if not improved in the next 3-5 days, or return to ER for any worsening MEGHAN KIDD MD October 21, 2016 22:16
[2016-10-21] MEDS ORDERED: DOXY100C2 PO (22:23)
[2016-10-21 23:00] VITALS: BP 118/72; PULSE 69; RESP 18; TEMP 98.3; O2SAT 97
--- NOTE | 2016-10-21 23:00 | NUR ---
DEPART PT GIVEN DI FOR TICK BITE, DOXYCYCLINE, F/U. RX PROVIDED FOR DOXYCYCLINE. PT VERBALIZES UNDERSTANDING OF DI, MED, F/U. QUESTIONS ASKED/ANSWERED - DENIES FURTHER QUESTIONS/NEEDS AT THIS TIME. PERSONAL BELONGINGS GATHERED. PT AMBULATED/ESCORTED TO ED EXIT - GAIT STABLE, NO SIGN OF DISTRESS AT THIS TIME.
== END 2016-10-21 23:00 | disposition home or self-care (01) ==
LOC: ED 21:53
DX: S20.361A Insect bite (nonvenomous) of right front wall of thorax, initial encounter (principal); L08.9 Local infection of the skin and subcutaneous tissue, unspecified; W57.XXXA Bitten or stung by nonvenomous insect and other nonvenomous arthropods, initial encounter; Y93.9 Activity, unspecified; Y92.009 Unspecified place in unspecified non-institutional (private) residence as the place of occurrence of the external cause; Y99.8 Other external cause status